=== PATIENT | female | born 1950 ===

== ENCOUNTER 2017-09-24 11:53 | Outpatient (CLI) | payer OTHER | END 2017-09-24 15:44 | disposition home or self-care (01) | LOC: MAMO-SONO 11:53 | DX: Z12.31 Encounter for screening mammogram for malignant neoplasm of breast (principal); N64.59 Other signs and symptoms in breast ==

== ENCOUNTER → 2019-05-26 | Outpatient (CLI) | payer OTHER | END | disposition home or self-care (01) | LOC: MAMO-SONO 12:14 | DX: N60.11 Diffuse cystic mastopathy of right breast (principal); N60.12 Diffuse cystic mastopathy of left breast; Z12.31 Encounter for screening mammogram for malignant neoplasm of breast; Z87.898 Personal history of other specified conditions ==

== ENCOUNTER → 2020-11-01 | Outpatient (CLI) | payer OTHER | END | disposition home or self-care (01) | LOC: MAMO-SONO 08:47 | PROVIDERS: ATTEND Radiology Diagnostic Radiology | DX: Z12.31 Encounter for screening mammogram for malignant neoplasm of breast (principal) ==

== ENCOUNTER 2022-09-23 16:15 | Outpatient (CLI) | payer OTHER | END 2022-09-23 16:30 | disposition home or self-care (01) | LOC: TOM 16:15 | DX: R10.31 Right lower quadrant pain (principal) ==

== ENCOUNTER 2023-06-18 10:20 | Outpatient (CLI) | payer OTHER | END 2023-06-18 10:38 | disposition home or self-care (01) | LOC: MAMO-SONO 10:20 | PROVIDERS: ATTEND Obstetrics & Gynecology | DX: N60.11 Diffuse cystic mastopathy of right breast (principal); N60.12 Diffuse cystic mastopathy of left breast ==